=== PATIENT | male | born 1995 | race Caucasian/White ===

== ENCOUNTER 2019-12-18 16:20 | Emergency (ER) | payer SELFPAY ==
[~2019-12-18] VITALS: Ht 188 cm; Wt 65.8 kg
[2019-12-18 16:22] VITALS: BP 100/77
--- NOTE | 2019-12-18 16:30 | NUR ---
PATIENT AMBULATED WITH STEADY GAIT TO BED 6.
--- NOTE | 2019-12-18 16:35 | NUR ---
BIB SELF C/O RT FOOT PAIN S/P STEP ON A BROKEN GLASS ABOUT ONE MONTH AGO. NON DRAINING OLD PUNCTURE WOUND ON BOTTOM OF RT FOOT PROXIMAL TO RT BIG TOE. DENIES ALOC OR OTHER INJURIES, HX OR MEDICATIONS.
--- NOTE | 2019-12-18 16:43 | NUR ---
PA PACHECO GARNER AT BEDSIDE
[2019-12-18] MEDS ORDERED: cefTRIAXone 1,000 MG in LIDOCAINE MPF 1% 2.1 ML IM ONE (16:50)
[2019-12-18] MEDS ORDERED: IBUPROFEN 600 MG TAB PO ONE (16:50)
[2019-12-18] MEDS ORDERED: BACITRACIN OINT 500 UNITS/GM PKT TP ONE (16:50)
[2019-12-18] MEDS ORDERED: LIDOCAINE MPF 1% 5 ML ONE (16:52)
[2019-12-18] MEDS ORDERED: cefTRIAXone 1,000 MG VIAL ONE (16:52)
--- NOTE | 2019-12-18 17:29 | NUR ---
PT IS ABLE TO USE CRUTCHES, BUT STATES HE DOES NOT WANT TO USE THEM THE WAY THAT WAS DEMONSTRATED. PT ADVISED THE REPCRUSSIONS OF NOT USING THE CRUTCHES PROPERLY AND STATES HE UNDERSTANDS.
[2019-12-18 17:30] VITALS: BP 121/69
--- NOTE | 2019-12-18 17:30 | NUR ---
Patient discharged with v/s stable. Written and verbal after care instructions given and explained. Patient alert, oriented and verbalized understanding of instructions. Ambulatory using cructches provided. All questions addressed prior to discharge. ID band removed. Patient advised to follow up with PMD. Rx of Ibuprofen, Keflex, Bacitracin given. Patient educated on indication of medication including possible reaction and side effects. Opportunity to ask questions provided and answered.
== END 2019-12-18 17:30 | disposition home or self-care (01) ==
LOC: EDBD 16:20 → MED 16:20
DX: L03.115 Cellulitis of right lower limb (principal)
CPT/HCPCS: 96372; 99283; J0696; J2001